=== PATIENT | male | born 1930 | race Caucasian/White ===

== ENCOUNTER 2016-09-02 09:30 | Outpatient (RCR) | payer MEDICARE, OTHER ==
--- NOTE | 2016-09-01 12:47 | IOP Daily Group Progress Note ---
IOP Daily Group Progress Note Treatment Plan/Target Problem: Date: Sep 01, 2016 Problem: depression Program: reflections Group Reflections - Wednesday: group 2 (10:35am-11:20am) Therapy Focus/Approach of Group: skills Goal(s) of Group: anxiety reduction, impact of current issues on mood, stress reduction Observations: anxious, depressed mood, participated, responded to prompts Staff Intervention: facilitated discussion, provided support Response/Progress Noted: A Cognitive Behavioral Therapy (CBT) exercise was presented helping the pt identify particularly challenging situations and obtain support and input regarding coping options. Pt stated that he was glad to be back, and that his time in a rehab facility was stressful and difficult. Pt responded positively to validation. DISHA ROMEO Sep 01, 2016 12:47
[~2016-09-02 09:30] MED LIST: ACETAMINOPHEN500 MG ORAL; AMBIEN10 M1 ORAL; AMBIEN10 MG ORAL; AMIODARONE HCL400 M1 ORAL; ANTACID GELATI1 EACH PO; ARTHROTEC1 TAB ORAL; ASPIRIN81 MG ORAL; CITRUS BIOFLAV120 GM PO; COLACE100 MG ORAL; CORDARONE200 M1 ORAL; CYANOCOBAL1000 MCG/2 IJ; DULCOLAX10 MG RC; DULCOLAX5 MG PO; GUAIFENESI100 MG/5 M ORAL; HYDROCODON-ACE1 EA13 ORAL; LIPITOR20 MG ORAL; LISINOPRIL5 MG ORAL; LOPRESSOR25 M1 ORAL; METOPROLOL TART50 MG ORAL; NEXIUM40 MG ORAL; NORCO 5-325 TA1 EACH ORAL; PLAVIX75 MG ORAL; TAMSULOSIN HCL0.4 MG ORAL; VITAMIN C500 M1 ORAL; [UNRECOGNIZED DRUG - OTHER] PO
--- NOTE | 2016-09-21 02:08 | Reflections ---
09/03/2016 SUBJECTIVE: The patient is coming back to the program. He recently fell and had a hip fracture. Now, he had recovered and came back to the program. He denies any new psychiatric symptoms at the present time. He is compliant with care and follows directions. DIAGNOSIS: Major depression. PLAN: Continue with current management. Continue to monitor symptoms and behavior. Amarjit Leonardo M.D. DR: KIKI JOB#: [id number] CC: RADHA
== END 2016-09-29 | disposition home or self-care (01) ==
LOC: PTY 09:30
DX: S72.92XD Unspecified fracture of left femur, subsequent encounter for closed fracture with routine healing (principal); Z96.642 Presence of left artificial hip joint; X58.XXXA Exposure to other specified factors, initial encounter; Y92.9 Unspecified place or not applicable

== ENCOUNTER 2016-10-09 13:00 | Outpatient (RCR) | payer MEDICARE, OTHER | END 2016-10-27 | disposition home or self-care (01) | LOC: PTY 13:00 | DX: S72.92XD Unspecified fracture of left femur, subsequent encounter for closed fracture with routine healing (principal); Z96.642 Presence of left artificial hip joint; X58.XXXA Exposure to other specified factors, initial encounter; Y92.9 Unspecified place or not applicable | CPT/HCPCS: 97110; G8979; G8980 ==

== ENCOUNTER 2016-12-22 14:00 | Outpatient (RCR) | payer MEDICARE, OTHER ==
--- NOTE | 2016-11-14 22:38 | Reflections ---
DATE: 11/12/2016 SUBJECTIVE: The patient doing fairly well, pleasant, calm, cooperative with care, and follows directions. Denies any new complaints. MENTAL STATUS EVALUATION: Alert and oriented to self and situation. Mood is anxious. Affect is appropriate. Thought process is linear. Cognition is intact. Impulse control, insight, and judgment is fair. DIAGNOSIS: Major depression. PLAN: Continue with current management. Continue to monitor symptoms and behavior. Medications reviewed. Chart reviewed. Case discussed with staff. No new symptoms, sedation, or side effects. Amarjit Leonardo M.D. DR: Dimitris JOB#: [id number] CC: RADHA
--- NOTE | 2016-12-22 15:21 | IOP Daily Group Progress Note ---
IOP Daily Group Progress Note Treatment Plan/Target Problem: Date: Dec 22, 2016 Problem: depression Program: reflections Group Reflections - Wednesday: group 2 (10:35am-11:20am) Therapy Goal(s) of Group: coping with change, decreasing isolation Observations: self disclosing, smiled when appropriate Staff Intervention: facilitated discussion, provided support, reflective listening Staff Intervention: Patient explored issues that he is struggling with such as loneleness and encourage him to talk feelings and issues out instead of avoiling them. Response/Progress Noted: "I want people to see me as important." TOM DAVEY Dec 22, 2016 15:21
--- NOTE | 2016-12-22 15:25 | IOP Daily Group Progress Note ---
IOP Daily Group Progress Note Treatment Plan/Target Problem: Date: Dec 22, 2016 Problem: depression Program: reflections Group Reflections - Wednesday: group 3 (11:30am-12:15pm) Therapy Goal(s) of Group: verbalize current thoughts and mood Observations: attentive, focused, smiled when appropriate Staff Intervention: assisted with identifying symptoms, provided reassurance, provided redirection Staff Intervention: Patient continued explored issues that he is struggling with loneliness and grandiosity at times. 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
== END 2016-12-27 | disposition home or self-care (01) ==
LOC: PTY 14:00
DX: S72.92XD Unspecified fracture of left femur, subsequent encounter for closed fracture with routine healing (principal); Z96.642 Presence of left artificial hip joint; X58.XXXA Exposure to other specified factors, initial encounter; Y92.9 Unspecified place or not applicable
CPT/HCPCS: 97110; 97112; 97162; G8978; G8979

== ENCOUNTER 2017-01-04 10:50 | Outpatient (RCR) | payer MEDICARE ==
--- NOTE | 2017-01-05 14:08 | IOP Daily Group Progress Note ---
IOP Daily Group Progress Note Treatment Plan/Target Problem: Date: January 05, 2017 Problem: depression Program: reflections Group Reflections - Wednesday: group 1 (9:40am-10:25am) Therapy Focus/Approach of Group: process Goal(s) of Group: identify activities to improve mood, identify mood, impact of current issues on mood, interpersonal relationships, verbalize current thoughts and mood Observations: attentive, constricted affect, irritable, participated Staff Intervention: assessed for safety/suicidality, assessed pt's current mood , facilitated discussion, prompted pt, provided support, reflective listening, summarized Response/Progress Noted: Process: Therapist has patients identify current mood and feelings. Therapist provided individuals a safe and comfortable place where they can work out problems and emotional issues. The pt was attentive but irritable and made some sarcastic remarks when tongue and groove machine setter was discussing mindfulness coping skills. JAVON FLYNN January 05, 2017 14:08
--- NOTE | 2017-01-05 16:19 | IOP Daily Group Progress Note ---
IOP Daily Group Progress Note Treatment Plan/Target Problem: Date: January 05, 2017 Problem: depression Group Reflections - Wednesday: group 2 (10:35am-11:20am) Therapy Goal(s) of Group: anxiety reduction, coping with change, identify activities to improve mood, impact of current issues on mood, interpersonal relationships, stress reduction, verbalize current thoughts and mood Observations: active listening skills, concrete thinking, engaged, focused, made insightful comments, open, participated spontaneously, positive mood, self disclosing, smiled when appropriate Staff Intervention: assessed for safety/suicidality, assessed pt's current mood , facilitated discussion Staff Intervention: Patients met new therapist and each shared their mood and how they were handling problem thoughts and concerns. Patients also discussed their individual diagnosis and how attending group has helped them improve. Therapist answered questions and provided information about his background. Response/Progress Noted: Patient expressed curiosity about new therapist's background, and facilitated discussion accordingly. 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 He described how he found the [facility] program and said it was "like paradise" and filled with "the nicest people." Feliz Whitaker CORPORATE OFFICER January 05, 2017 16:19
--- NOTE | 2017-01-12 15:07 | IOP Daily Group Progress Note ---
IOP Daily Group Progress Note Treatment Plan/Target Problem: Date: January 12, 2017 Problem: depression Group Reflections - Wednesday: group 2 (10:35am-11:20am) Therapy Focus/Approach of Group: skills Goal(s) of Group: anxiety reduction, identify mood, identifying strengths, verbalize current thoughts and mood Staff Intervention: assessed for safety/suicidality, assessed pt's current mood , facilitated discussion Staff Intervention: Therapist facilitated a discussion about ways to cope with regret and allow for feeling. Patients were asked to share how they handle regret and recognize their strengths. Response/Progress Noted: Patient said he is doing well and shared his thoughts about regret, quoting a song with the luba, "where has last February gone?" He described feeling that things go and life goes on. Feliz Whitaker MENTAL TELEPATHIST January 12, 2017 15:07
--- NOTE | 2017-01-12 19:00 | IOP Daily Group Progress Note ---
IOP Daily Group Progress Note Treatment Plan/Target Problem: Date: January 12, 2017 Problem: depression Program: reflections Group Reflections - Wednesday: group 3 (11:30am-12:15pm) Therapy Goal(s) of Group: anxiety reduction, communication skills, coping tools for symptoms, coping with change, counteracting negative thinking, decreasing isolation, identify activities to improve mood, identify mood, identifying strengths, identify triggers to symptoms, impact of current issues on mood, improving self esteem, increasing independence, interpersonal relationships, measurable signs of progress, positive thoughts to improve mood, socialization skills, stress reduction, support systems, symptom management, verbalize current thoughts and mood Observations: anxious, blunted, concrete thinking, depressed mood, engaged, focused, guarded, participated, passive, pressured speech, responded to prompts Staff Intervention: assessed for safety/suicidality, assessed pt's current mood , assisted identifying coping tools, assisted with identifying symptoms, encouraged patient participation, facilitated discussion, normalized feelings, prompted pt, provided psycho-education, provided reassurance, provided support, reflective listening, reframed, summarized, validated feelings Staff Intervention: Pt participated in Symptoms Management Group today. Pt appeared to be observant & attentive during the group discussion. He was, however, somewhat avoidant about making any specific identifications of symptoms which are problematic for him. KRISTINE ALCALA January 12, 2017 19:00
--- NOTE | 2017-01-12 19:06 | IOP Daily Group Progress Note ---
IOP Daily Group Progress Note Treatment Plan/Target Problem: Date: January 12, 2017 Problem: depression Program: reflections Group Reflections - Wednesday: group 1 (9:40am-10:25am) Therapy Focus/Approach of Group: process Goal(s) of Group: communication skills, identify mood, impact of current issues on mood, verbalize current thoughts and mood Observations: anxious, attentive, blunted, concrete thinking, depressed mood, engaged, focused, guarded, participated, passive, pressured speech, responded to prompts Staff Intervention: assessed for safety/suicidality, assessed pt's current mood , assisted identifying coping tools, encouraged patient participation, facilitated discussion, normalized feelings, prompted pt, provided psycho- education, provided reassurance, provided support, reflective listening, reframed, summarized, validated feelings Staff Intervention: Pt participated in Process Group this morning. Pt was mod active in group discussion but, not very open about his own issues. He shared "I feel fine today and, I'm focused on my dentist appointment later this afternoon." KRISTINE ALCALA January 12, 2017 19:06
--- NOTE | 2017-01-14 16:15 | IOP Daily Group Progress Note ---
IOP Daily Group Progress Note Treatment Plan/Target Problem: Date: January 14, 2017 Problem: depression Group Reflections - : group 1 (9:40am-10:25am) Therapy Focus/Approach of Group: process Goal(s) of Group: anxiety reduction, identify mood, identify triggers to symptoms, impact of current issues on mood, verbalize current thoughts and mood Observations: engaged, participated, positive mood Staff Intervention: assessed for safety/suicidality, assessed pt's current mood , facilitated discussion Staff Intervention: Therapist requested that patients share their mood and feelings. If patients were experiencing anything negative or anxiety-provoking, therapist asked what would improve their mood. Patients were encouraged to express themselves and assessed for SI, HI, and safety. Response/Progress Noted: Patient said he is "fine." He described his sleep schedule and how much he enjoys playing the [employer]. Feliz Whitaker DEBRIDGING MACHINE OPERATOR January 14, 2017 16:15
--- NOTE | 2017-01-19 15:36 | IOP Daily Group Progress Note ---
IOP Daily Group Progress Note Treatment Plan/Target Problem: Date: January 19, 2017 Problem: depression Program: reflections Group Reflections - Wednesday: group 1 (9:40am-10:25am) Therapy Focus/Approach of Group: process Goal(s) of Group: communication skills, identify mood, impact of current issues on mood, verbalize current thoughts and mood Observations: anxious, attentive, blunted, concrete thinking, engaged, focused , nervous, open, participated, positive mood, self disclosing, responded to prompts Staff Intervention: assessed for safety/suicidality, assessed pt's current mood , assisted identifying coping tools, assisted with identifying symptoms, encouraged patient participation, facilitated discussion, helped to set goals, normalized feelings, prompted pt, provided psycho-education, provided reassurance, provided support, reflective listening, reframed, summarized, validated feelings Staff Intervention: Pt participated in Process Group this morning. He was attentive, open and mod- active in group discussion. Pt shared "I slept lousy, I feel lousy, but I still come because I make friends." KRISTINE ALCALA January 19, 2017 15:36
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
== END 2017-01-27 | disposition home or self-care (01) ==
LOC: PTY 10:50
DX: S72.92XD Unspecified fracture of left femur, subsequent encounter for closed fracture with routine healing (principal); Z96.642 Presence of left artificial hip joint; X58.XXXA Exposure to other specified factors, initial encounter; Y92.9 Unspecified place or not applicable

== ENCOUNTER 2017-02-02 14:00 | Outpatient (RCR) | payer MEDICARE, OTHER ==
--- NOTE | 2017-01-28 15:03 | IOP Daily Group Progress Note ---
IOP Daily Group Progress Note Treatment Plan/Target Problem: Date: Jan 28, 2017 Problem: depression Program: reflections Group Reflections - : group 1 (9:40am-10:25am) Therapy Focus/Approach of Group: process Goal(s) of Group: anxiety reduction, coping tools for symptoms, identify mood, identifying strengths, interpersonal relationships, verbalize current thoughts and mood Observations: attentive, low energy, participated Staff Intervention: assessed for safety/suicidality, assessed pt's current mood , facilitated discussion, provided reassurance, provided support, validated feelings Staff Intervention: Therapist facilitated a discussion with patients about their current mood and feelings, providing them with a safe space to express themselves. Patients were assessed for SI, HI, and safety. Response/Progress Noted: Patient provided support and expressed empathy to another group member experiencing distress. Feliz Whitaker Jan 28, 2017 15:03
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
== END 2017-02-26 | disposition home or self-care (01) ==
LOC: PTY 14:00
DX: M84.35 Stress fracture, pelvis and femur (principal); I10 Essential (primary) hypertension

== ENCOUNTER 2017-03-04 13:00 | Outpatient (RCR) | payer MEDICARE, OTHER ==
--- NOTE | 2017-02-28 20:31 | Reflections ---
12/17/2016 SUBJECTIVE: The patient withdrawn, guarded, anxious, internally preoccupied. No new symptoms, sedation, or side effects. MENTAL STATUS EVALUATION: Alert and oriented to self and situation. Mood is anxious. Affect is appropriate. Thought process is linear. Cognition is intact. Impulse control, insight, and judgment is fair. DIAGNOSIS: Major depression. PLAN: Continue with current management. Continue to monitor symptoms and behavior. Chart reviewed. Case discussed with staff. No new symptoms, sedation, or side effects. Amarjit Leonardo M.D. DR: Dimitris JOB#: [id number] CC: RADHA
== END 2017-03-29 | disposition home or self-care (01) ==
LOC: PTY 13:00
DX: S72.92XD Unspecified fracture of left femur, subsequent encounter for closed fracture with routine healing (principal); I10 Essential (primary) hypertension; Z96.642 Presence of left artificial hip joint; X58.XXXD Exposure to other specified factors, subsequent encounter

== ENCOUNTER → 2017-04-29 | Outpatient (RCR) | payer MEDICARE, OTHER | END | disposition home or self-care (01) | LOC: PTY 04-07 07:20 | DX: M84.35 Stress fracture, pelvis and femur (principal); M25.552 Pain in left hip; Z96.642 Presence of left artificial hip joint; I10 Essential (primary) hypertension; Z95.0 Presence of cardiac pacemaker | CPT/HCPCS: 97110; 97140; G8978; G8979 ==

== ENCOUNTER 2017-05-13 08:08 | Outpatient (RCR) | payer MEDICARE, OTHER | END 2017-05-29 | disposition home or self-care (01) | LOC: PTY 08:08 | DX: S72.92XD Unspecified fracture of left femur, subsequent encounter for closed fracture with routine healing (principal) | CPT/HCPCS: 97110; 97140; G8979; G8980 ==

== ENCOUNTER 2017-11-18 13:30 | Outpatient (RCR) | payer MEDICARE, OTHER | END 2017-11-27 | disposition home or self-care (01) | LOC: PTY 13:30 | DX: R26.89 Other abnormalities of gait and mobility (principal) | CPT/HCPCS: 97110; 97112; 97162; G8978; G8979 ==

== ENCOUNTER 2017-11-30 13:00 | Outpatient (RCR) | payer MEDICARE, OTHER | END 2017-12-27 | disposition home or self-care (01) | LOC: PTY 13:00 | DX: R26.89 Other abnormalities of gait and mobility (principal) ==

== ENCOUNTER 2017-12-29 14:30 | Outpatient (RCR) | payer MEDICARE, OTHER | END 2018-01-27 | disposition home or self-care (01) | LOC: PTY 14:30 | DX: R26.89 Other abnormalities of gait and mobility (principal) ==

== ENCOUNTER 2018-02-01 13:00 | Outpatient (RCR) | payer MEDICARE, OTHER | END 2018-02-26 | disposition home or self-care (01) | LOC: PTY 13:00 | DX: R26.89 Other abnormalities of gait and mobility (principal) | CPT/HCPCS: 97110; G8978; G8979 ==

== ENCOUNTER 2018-03-18 14:00 | Outpatient (RCR) | payer MEDICARE, OTHER | END 2018-03-29 | disposition home or self-care (01) | LOC: PTY 14:00 | DX: R26.89 Other abnormalities of gait and mobility (principal); S72.92XA Unspecified fracture of left femur, initial encounter for closed fracture; Z96.642 Presence of left artificial hip joint; I25.2 Old myocardial infarction; I10 Essential (primary) hypertension; Z95.0 Presence of cardiac pacemaker ==

== ENCOUNTER 2018-04-13 10:30 | Outpatient (RCR) | payer MEDICARE, OTHER | END 2018-04-29 | disposition home or self-care (01) | LOC: PTY 10:30 | DX: R26.89 Other abnormalities of gait and mobility (principal); M54.16 Radiculopathy, lumbar region ==

== ENCOUNTER 2018-05-06 09:50 | Outpatient (RCR) | payer MEDICARE, OTHER | END 2018-05-29 | disposition home or self-care (01) | LOC: PTY 09:50 | DX: M54.16 Radiculopathy, lumbar region (principal) ==

== ENCOUNTER 2019-04-03 14:47 | Emergency (ER) | payer MEDICARE, OTHER ==
[~2019-04-03] VITALS: Ht 177.8 cm; Wt 72.6 kg
[~2019-04-03 14:47] MED LIST changes: +ACIDOPHILUS1 EAC4 PO; +ELIQUIS2.5 MG PO; +METOPROLOL TART50 M1 ORAL; +ZANTAC150 MG ORAL
--- NOTE | 2019-04-03 15:01 | NUR ---
ED Nurse Note: Pt VIDA from [facility] due to L sided weakness noticed this morning by physical therapist. L upper and lower extremities weaker than baseline. Pt has hx of CVA, L side weakness residual. No facial drooping or change in mental status. Pt is AOx2 (name/purpose), vital signs stable thompson. Will cont to monitor.
--- NOTE | 2019-04-03 15:08 | NUR ---
ED Nurse Note: Pt down to CT for imaging.
--- NOTE | 2019-04-03 15:12 | NUR ---
ED Nurse Note: Pt back from CT, waiting for lab results first.
[2019-04-03] MEDS ORDERED: Isovue-370 150ml vial INJ PRN (15:15)
--- NOTE | 2019-04-03 15:18 | Emergency Room Report ---
History of Present Illness General Chief Complaint: Generalized Weakness Present Illness HPI Disclaimer: Please note that this report is being documented using [employer] technology. This can lead to erroneous entry secondary to incorrect interpretation by the dictating instrument. HPI: 88-year-old male with history of IA status post stenting x2, atrial fibrillation status post pacemaker and anticoagulated on Eliquis, cardiomyopathy with reduced ejection fraction, previous stroke with residual left-sided weakness, hypertension, hyperlipidemia, depression presents for evaluation of left-sided weakness. Symptoms were noticed by occupational therapist earlier this morning during his routine physical exercise. She noted left-sided upper and lower weakness as compared to the patient's baseline but denied any facial droop, dysarthria, change in mental status. Unknown when the symptoms began though it is reportedly out of his baseline. The patient states he feels fine and has no complaints at this time. He denies any recent illness , fall, injury. He was recently seen at [facility] 1 month ago after a fall and had an unremarkable CT scan of the head. He denies any chest pain, cough, dysuria, abdominal pain, vomiting, diarrhea, rash or other changes in state of health. Patient states he is ambulatory with the use of a walker as baseline. PMH: CAD, hypertension, hyperlipidemia, atrial fibrillation on Eliquis, prior stroke, depression PSH: Pacemaker plantation, stenting x2 Allergies: None reported Social Hx: Denies alcohol, tobacco or drug use Allergies: Coded Allergies: No Known Allergies (Unverified , 06/13/13) Nursing Documentation-PMH Hx Cardiac Problems: Yes - PACEMAKER, STENTS, IA Hx Hypertension: Yes Hx Cancer: No Hx Gastrointestinal Problems: No Hx Neurological Problems: Yes Hx Cerebrovascular Accident: Yes Hx Syncope: Yes Hx Weakness: Yes Review of Systems All Other Systems: limited Physical Exam Vital Signs Date Time Temp Pulse Resp B/P (MAP) Pulse Ox O2 Delivery O2 Flow Rate FiO2 04/03/19 14:53 97.7 80 16 126/78 (94) 94 Room Air General: Awake and alert, no acute distress HEENT: NC/AT. EOMI. PERRLA. Visual sheehan are full. No nystagmus. Facial expressions are symmetrical. No facial droop. Uvula is midline, tongue is midline Cardiovascular: Irregularly irregular rhythm, normal rate. Resp: Normal work of breathing. No cough, wheezing or crackles appreciated Abdomen: Abdomen is soft, nondistended. Nontender Skin: Intact. No abrasions, laceration or rash over the exposed skin MSK: Normal tone and bulk. Moving all extremities. No obvious deformity. No drift in the left upper extremity and in the left lower extremity. Neuro: Awake and alert. Mentating appropriately. Facial expression symmetrical. No dysarthria, mild ataxia on [id number] testing in the left upper extremity, normal on right. Sensation to light touch is intact over the upper and lower extremities. The patient has intact speech with good repetition, comprehension. Fund of knowledge is full. No aphasia, no neglect. NIH: 3 Medical Decision Making Diagnostic Impression: Primary Impression: Unilateral weakness ER Course 88-year-old male with a history of prior stroke and some residual left sided weakness presents for worsening left-sided weakness first noticed today by his occupational therapist. The patient states there is no change in his physical condition, NIH score of 3 for mild drift and ataxia in the left upper extremity. He is on Eliquis and will obtain a CT scan of the head without contrast and CT angio as well. Labs are sent and pending. Is in no acute distress. Laboratory Tests Test 04/03/19 15:05 04/03/19 15:23 White Blood Count 8.4 K/UL (4.8-10.8) Red Blood Count 4.37 M/UL (4.70-6.10) L Hemoglobin 14.2 G/DL (14.2-18.0) Hematocrit 43.8 % (42.0-52.0) Mean Corpuscular Volume 100 FL (80-99) H Mean Corpuscular Hemoglobin 32.5 PG (27.0-31.0) H Mean Corpuscular Hemoglobin Concent 32.4 G/DL (32.0-36.0) Red Cell Distribution Width 13.5 % (11.6-14.8) Platelet Count 252 K/UL (150-450) Mean Platelet Volume 6.6 FL (6.5-10.1) Neutrophils (%) (Auto) 69.7 % (45.0-75.0) Lymphocytes (%) (Auto) 17.2 % (20.0-45.0) L Monocytes (%) (Auto) 10.9 % (1.0-10.0) H Eosinophils (%) (Auto) 1.2 % (0.0-3.0) Basophils (%) (Auto) 0.9 % (0.0-2.0) Prothrombin Time 10.8 SEC (9.30-11.50) Prothromb Time International Ratio 1.0 (0.9-1.1) Activated Partial Thromboplast Time 28 SEC (23-33) Sodium Level 142 MMOL/L (136-145) Potassium Level 4.2 MMOL/L (3.5-5.1) Chloride Level 107 MMOL/L (98-107) Carbon Dioxide Level 28 MMOL/L (21-32) Anion Gap 7 mmol/L (5-15) Blood Urea Nitrogen 34 mg/dL (7-18) H Creatinine 1.4 MG/DL (0.55-1.30) H Estimat Glomerular Filtration Rate mL/min (>60) Glucose Level 132 MG/DL (74-106) H Calcium Level 9.1 MG/DL (8.5-10.1) Total Bilirubin 0.3 MG/DL (0.2-1.0) Aspartate Amino Transf (AST/SGOT) 11 U/L (15-37) L Alanine Aminotransferase (ALT/SGPT) 19 U/L (12-78) Alkaline Phosphatase 89 U/L (46-116) Troponin I 0.000 ng/mL (0.000-0.056) Total Protein 6.5 G/DL (6.4-8.2) Albumin 3.2 G/DL (3.4-5.0) L Globulin 3.3 g/dL Albumin/Globulin Ratio 1.0 (1.0-2.7) Urine Color Yellow Urine Appearance Clear Urine pH 5 (4.5-8.0) Urine Specific [place] 1.020 (1.005-1.035) Urine Protein 1+ (NEGATIVE) H Urine Glucose (UA) Negative (NEGATIVE) Urine Ketones Negative (NEGATIVE) Urine Blood Negative (NEGATIVE) Urine Nitrite Negative (NEGATIVE) Urine Bilirubin Negative (NEGATIVE) Urine Urobilinogen Normal MG/DL (0.0-1.0) Urine Leukocyte Esterase Negative (NEGATIVE) Urine RBC 0-2 /HPF (0 - 0) H Urine WBC 0-2 /HPF (0 - 0) Urine Squamous Epithelial Cells None /LPF (NONE/OCC) Urine Bacteria Few /HPF (NONE) EKG Diagnostic Results EKG Time: 15:02 EP Interpretation: Fibrillation Rate: normal Rhythm: other - Atrial fibrillation Other Impression Atrial fibrillation with normal ventricular rate, normal axis. No acute ischemic ST changes. Rhythm Strip Diag. Results Rhythm Strip Time: 15:02 EP Interpretation: yes Rate: 60s Rhythm: other Other Impression Atrial fibrillation Reevaluation Time: 17:31 Last Vital Signs Date Time Temp Pulse Resp B/P (MAP) Pulse Ox O2 Delivery O2 Flow Rate FiO2 19 14:53 97.7 80 16 126/78 (94) 94 Room Air Status: improved Reevaluation Impression Labs unremarkable, baseline CKD. No evidence of infection. CT and CTA show no evidence of large vessel occlusion. Cannot perform MRI as the patient has a pacemaker. Discussed with his PMD, Dr. Alejo, who will follow up closely with the patient. As he appears to be returned to his baseline and the patient himself does not want admission we will be discharging home with close PMD follow-up. We discussed all the imaging results, lab results, EKGs and plan for follow-up with the patient. He understands and agrees with this treatment plan will be discharged home Disposition: ASSISTED LIVING Condition: Stable De Vásquez MD Apr 03, 2019 15:18
[2019-04-03 15:29] LABS: BASOPHILS % (AUTO) 0.9 % (0.0-2.0); EOSINOPHILS % (AUTO) 1.2 % (0.0-3.0); HEMATOCRIT 43.8 % (42.0-52.0); HEMOGLOBIN 14.2 G/DL (14.2-18.0); LYMPHOCYTES % (AUTO) 17.2 % (20.0-45.0); MEAN CORPUSCULAR VOLUME 100 FL (80-99); MONOCYTES % (AUTO) 10.9 % (1.0-10.0); NEUTROPHILS % (AUTO) 69.7 % (45.0-75.0); PLATELET COUNT 252 K/UL (150-450); RED BLOOD COUNT 4.37 M/UL (4.70-6.10); RED CELL DISTRIBUTION WIDTH 13.5 % (11.6-14.8); WHITE BLOOD COUNT 8.4 K/UL (4.8-10.8)
[2019-04-03 15:30] LABS: ANION GAP 7 mmol/L (5-15); BLOOD UREA NITROGEN 34 mg/dL (7-18); CALCIUM 9.1 MG/DL (8.5-10.1); CARBON DIOXIDE 28 MMOL/L (21-32); CHLORIDE 107 MMOL/L (98-107); CREATININE 1.4 MG/DL (0.55-1.30); POTASSIUM 4.2 MMOL/L (3.5-5.1); SODIUM 142 MMOL/L (136-145)
[2019-04-03 15:34] LABS: ALANINE AMINOTRANSFERASE 19 U/L (12-78); ALBUMIN 3.2 G/DL (3.4-5.0); ALKALINE PHOSPHATASE 89 U/L (46-116); ASPARTATE AMINO TRANSFERASE 11 U/L (15-37); BILIRUBIN,TOTAL 0.3 MG/DL (0.2-1.0)
--- NOTE | 2019-04-03 15:43 | Diagnostic Imaging Report ---
Indication: Dyspnea Comparison: 05/16/2016 A single view chest radiograph was obtained. Findings: There is a pacemaker in the left anterior chest wall. No definite infiltrate or pulmonary vascular congestion identified. The heart is enlarged. The aorta is mildly enlarged consistent with atherosclerotic vascular disease. The bones are osteopenic. Impression: No acute disease
[2019-04-03 15:45] VITALS: BP 107/81
[2019-04-03 15:55] LABS: APPEARANCE,URINE CLEAR; BILIRUBIN, URINE NEGATIVE (NEGATIVE); GLUCOSE, URINE (UA) NEGATIVE (NEGATIVE); KETONES,URINE NEGATIVE (NEGATIVE); LEUKOCYTE ESTERASE ,URINE NEGATIVE (NEGATIVE); NITRITE,URINE NEGATIVE (NEGATIVE); PH,URINE 5 (4.5-8.0); PROTEIN,URINE 1+ (NEGATIVE); UROBILINOGEN,URINE NORMAL MG/DL (0.0-1.0)
[2019-04-03 15:59] LABS: COLOR,URINE YELLOW
--- NOTE | 2019-04-03 17:06 | Diagnostic Imaging Report ---
Indication: Focal weakness. Acute cva Technique: Continuous helical transaxial imaging of the head was obtained during rapid intravenous contrast administration. Arterial phase of enhancement obtained. Coronal 2-D reformats were also obtained and maximum intensity projection images in multiple planes. Study obtained in a Siemens sensation [address] Automatic Exposure Control was utilized. Total Dose length Product (DLP): [address] Dose Index Volume (CTDIvol): 70.38,54.98,54.98,54.98 mGy Comparison: None Findings: There is no high-grade stenosis or occlusion identified within the major intracranial arteries including the anterior, middle and posterior cerebral arteries. Intracranial portions of both vertebral arteries and basilar artery appear normal. Intracranial portions of the ICA noted. There is mural calcium especially in the cavernous and supraclinoid ICA. No aneurysm or vascular malformation seen. IMPRESSION: No high-grade stenosis or occlusion identified. Atherosclerotic vascular disease.
[2019-04-03 17:30] VITALS: BP 110/79
--- NOTE | 2019-04-03 18:06 | NUR ---
ED Nurse Note: Report given to JEFFRY at [facility]. Awaiting for transportation.
[2019-04-03 18:07] VITALS: BP 118/82
[2019-04-03 18:36] VITALS: BP 118/82
--- NOTE | 2019-04-03 18:36 | NUR ---
ED Nurse Note: Ambulance personels at bedside for transportation. No sign of acute distress.
--- NOTE | 2019-04-05 18:44 | Cardiology Report ---
APPROVED REPORT EKG Measurement Heart [id number] Atrial fibrillation with Paced beats Possible Inferior infarct, age undetermined Anteroseptal infarct, age undetermined Abnormal ECG
== END 2019-04-03 18:36 | disposition home or self-care (01) ==
LOC: EDBD 14:47 → EMR 16:38
DX: R53.1 Weakness (principal); G81.94 Hemiplegia, unspecified affecting left nondominant side; I25.2 Old myocardial infarction; I10 Essential (primary) hypertension; E78.5 Hyperlipidemia, unspecified; Z79.01 Long term (current) use of anticoagulants; F32.9 Major depressive disorder, single episode, unspecified; I48.91 Unspecified atrial fibrillation; Z95.0 Presence of cardiac pacemaker; I12.9 Hypertensive chronic kidney disease with stage 1 through stage 4 chronic kidney disease, or unspecified chronic kidney disease; N18.9 Chronic kidney disease, unspecified; Z95.5 Presence of coronary angioplasty implant and graft
CPT/HCPCS: 36415; 70496; 71045; 80053; 81003; 84484; 85025; 85610; 85730; 93005; 99284; Q9967